=== PATIENT | male | born 1980 | race Caucasian/White ===

== ENCOUNTER 2016-12-31 13:09 | Emergency (ER) | payer OTHER ==
[~2016-12-31] VITALS: Ht 188 cm; Wt 95.3 kg
[2016-12-31 13:29] VITALS: BP 136/83
[2016-12-31] MEDS ORDERED: LIDOCAINE 1% / SOD BICARB 8.4% 20 ML VIAL. IJ ONE (13:45)
--- NOTE | 2016-12-31 14:17 | PHYS DOC ---
Past Medical History Past Medical History: No Pertinent History Additional Past Medical Histor: unknown Past Surgical History: Other Additional Past Surgical Histo: HERNIA Alcohol Use: None Drug Use: Methamphetamine Adult General Chief Complaint Chief Complaint: UPPER EXTREMITY INJURY HPI HPI Patient is a 36 year old nail presents to the emergency partner stating that he was out trimming the hedges when he fell into the blush and cut his left anterior forearm. Patient has approximately 4 cm laceration noted. He states his tetanus immunization is up-to-date less than a year ago he has full range of motion of his wrist and hand. Bleeding is currently controlled at this time. Review of Systems Review of Systems Constitutional: Denies fever or chills [] Eyes: Denies change in visual acuity, redness, or eye pain [] HENT: Denies nasal congestion or sore throat [] Respiratory: Denies cough or shortness of breath [] Cardiovascular: No additional information not addressed in HPI [] GI: Denies abdominal pain, nausea, vomiting, bloody stools or diarrhea [] : Denies dysuria or hematuria [] Musculoskeletal: Denies back pain or joint pain [] Integument: Denies rash or skin lesions. 4 cm laceration Neurologic: Denies headache, focal weakness or sensory changes [] Endocrine: Denies polyuria or polydipsia [] Current Medications Current Medications Current Medications Medications (Trade) Dose Ordered Sig/Yen Start Time Stop Time Status Last Admin Dose Admin Lidocaine/Sodium Bicarbonate (Buffered Lidocaine 1%) 20 ml 1X ONCE 12/31/16 13:45 12/31/16 13:46 DC 12/31/16 13:45 20 ML Allergies Allergies Allergies Coded Allergies Type Severity Reaction Last Updated Verified No Known Drug Allergies 12/13/14 No Physical Exam Physical Exam Constitutional: Well developed, well nourished, no acute distress, non-toxic appearance. [] HENT: Normocephalic, atraumatic, bilateral external ears normal, oropharynx moist, no oral exudates, nose normal. [] Eyes: PERRLA, EOMI, conjunctiva normal, no discharge. [] Neck: Normal range of motion, no tenderness, supple, no stridor. [] Cardiovascular:Heart rate regular rhythm, Lungs & Thorax: No respiratory distress noted Skin: Warm, dry, no erythema, no rash. 4 cm jagged laceration noted to the anterior part of the left distal forearm. Back: No tenderness Extremities: No tenderness, no cyanosis, no clubbing, ROM intact, no edema. [] Neurologic: Alert and oriented X 3, normal motor function, normal sensory function, no focal deficits noted. [] Psychologic: Affect normal, judgement normal, mood normal. [] Current Patient Data Vital Signs Vital Signs Date Time Temp Pulse Resp B/P (MAP) Pulse Ox O2 Delivery O2 Flow Rate FiO2 12/31/16 13:29 98.1 84 18 99 Room Air 98.1 EKG EKG [] Radiology/Procedures Radiology/Procedures [] Course & Med Decision Making Course & Med Decision Making Pertinent Labs and Imaging studies reviewed. (See chart for details) Lidocaine was injected into the area approximately 6 mL. Site was irrigated with 250 mL of normal saline. Site was then cleaned with Betadine. 15 interrupted sutures was placed of 4-0 nylon. Patient was instructed to monitor for signs and symptoms of infection: Redness, warmth, tenderness or any yellow/ greenish drainage of a come from the site physician occur you need to follow-up the primary care physician immediately. Tylenol or ibuprofen for pain and discomfort. Ice packs on 20 minutes off treatment several times a day. Elevation as much as possible. Patient was encouraged to clean the area twice daily with soap and water and apply antibiotic ointment. Patient was provided with signs symptoms to return back to the emergency department. He was instructed to have the sutures out in 7-10 days. Patient agrees with discharge instructions, treatment regimens and follow-up recommendations. [] Dragon Disclaimer Dragon Disclaimer This electronic medical record was generated, in whole or in part, using a voice recognition dictation system. Departure Departure Impression: Primary Impression: Laceration Disposition: 01 HOME, SELF-CARE Condition: STABLE Referrals: UNKNOWN PCP NAME (PCP) Patient Instructions: Laceration Care, Adult, [id number], Sutured Wound Care , [id number] Additional Instructions: Keep the area clean and dry. Clean the site twice daily with soap and water and apply antibiotic ointment. Tylenol or ibuprofen for pain and discomfort. Ice packs on 20 minutes off 20 minutes several times a day. Elevation as much as possible. Watch for signs and symptoms of infection: Redness, warmth, tenderness or any yellow/greenish drainage of a come from the site if this should occur you need follow-up to primary care physician immediately. Otherwise follow-up to primary care physician in the next 7-10 days for suture removal. Return back to emergency prior signs symptoms become worse. Scripts No Active Prescriptions or Reported Meds Laceration/Wound Repair Laceration/Wound Repair : Wound Location: upper extremity Wound's Depth, Shape: superficial Wound Length (cm): 4 Wound Explored: clean Irrigated w/ Saline (ccs): 250 Anesthesia: 1% Lidocaine Volume Anesthetic (ccs): 6 Wound Debrided: minimal Wound Repaired With: sutures Suture Size/Type: 4:0, nylon Number of Sutures: 15 KELLI TOP[employer]E [employer] Dec 31, 2016 14:17
== END 2016-12-31 14:30 | disposition home or self-care (01) ==
LOC: ER 13:09
DX: S51.812A Laceration without foreign body of left forearm, initial encounter (principal); F15.10 Other stimulant abuse, uncomplicated; W27.1XXA Contact with garden tool, initial encounter; Y93.H2 Activity, gardening and landscaping; Y99.8 Other external cause status; Y92.89 Other specified places as the place of occurrence of the external cause
CPT/HCPCS: 12002; 99283-25